=== PATIENT | female | born 1970 | race Caucasian/White ===

== ENCOUNTER 2021-10-02 22:30 | Inpatient (IN) | payer OTHER, SELFPAY ==
[~2021-10-02] VITALS: Ht 167.6 cm; Wt 97.5 kg
--- NOTE | 2021-10-02 22:30 | NUR ---
PT TAKEN TO BED 9
[2021-10-02 22:32] VITALS: BP 141/75
--- NOTE | 2021-10-02 22:32 | NUR ---
Teresa ni in [facility] - 10/02/21 at 2232 by MEDGJ PT W/C ASSISTED TO BED #9
[2021-10-02] MEDS ORDERED: NACL 0.9% 1,000 ML IV ONE (23:00)
[2021-10-02] MEDS ORDERED: PANTOPRAZOLE 40 MG INJ VIAL IVP ONE (23:00)
--- NOTE | 2021-10-02 23:02 | NUR ---
PATIENT VOMITED COFFEE GROUND EMESIS IN EMESIS BAG AND ALL OVER SELF. -- ERMD MADE AWARE-- ORDER 4MG ZOFRAN
[2021-10-02] MEDS ORDERED: ONDANSETRON 4 MG/2 ML VIAL ONE (23:05)
--- NOTE | 2021-10-02 23:16 | NUR ---
ERMD AT BEDSIDE FOR EXAMINATION OF PATIENT
[2021-10-02] MEDS ORDERED: ONDANSETRON 4 MG/2 ML VIAL IVP ONE (23:20)
--- NOTE | 2021-10-02 23:20 | NUR ---
IV removed, catheter intact and site benign. Applied folded 4x4 gauze and tape to stop bleeding. Patient pulled the IV out suddenly
[2021-10-02 23:24] LABS: BASOPHILS % (AUTO) 0.2 % (0.0-2.0); EOSINOPHILS % (AUTO) 0.4 % (0.0-4.0); HEMATOCRIT 30.8 % (36-48); HEMOGLOBIN 10.3 g/dL (12.0-16.0); LYMPHOCYTES # (AUTO) 1.6 K/uL (2.5-16.5); LYMPHOCYTES % (AUTO) 17.5 % (20.5-51.1); MEAN CORPUSCULAR HEMOGLOBIN 27 pg (27-31); MEAN CORPUSCULAR HGB CONC 33 g/dL (33-37); MONOCYTES # (AUTO) 0.6 K/uL (0.8-1.0); MONOCYTES % (AUTO) 6.8 % (1.7-9.3); NEUTROPHILS % (AUTO) 75.1 % (42.2-75.2); PLATELET COUNT (AUTO) 229 K/uL (140-450); RED BLOOD CELL COUNT(AUTO) 3.85 MIL/uL (4.20-5.40); RED CELL DISTRIBUTION WIDTH 17.4 % (11.6-13.7); WHITE BLOOD COUNT (AUTO) 9.4 K/uL (4.8-10.8)
[2021-10-02] MEDS ORDERED: cefTRIAXone 1,000 MG VIAL ONE (23:43)
[2021-10-02 23:45] LABS: ALBUMIN 3.3 g/dL (3.4-5.0); ANION GAP 11.2 (8-16); CARBON DIOXIDE 28.9 mmol/L (21-32); CREATININE 0.7 mg/dL (0.6-1.3); POTASSIUM 4.1 mmol/L (3.5-5.1); TOTAL BILIRUBIN 0.3 mg/dL (0.0-1.0)
[2021-10-02 23:52] LABS: PROTHROMBIN TIME 10.5 secs (10.8-13.4)
--- NOTE | 2021-10-03 00:30 | NUR ---
Patient appears to be resting comfortably in bed. Vital Signs within normal limits. Respirations even and unlabored. Safety measures are in place, attached to alarm security or surveillance monitor, and will continue to monitor patient.
[2021-10-03] MEDS ORDERED: NACL 0.9% 1,000 ML IV ONE (01:10)
--- NOTE | 2021-10-03 02:08 | NUR ---
unhooked patient on the moniotr and patient w/c assisted to the bathroom. patient tolerated well.
[2021-10-03] MEDS ORDERED: MORPHINE SULFATE 2 MG/ML SYR IVP PRN (03:25)
[2021-10-03] MEDS ORDERED: ONDANSETRON 4 MG/2 ML VIAL IVP PRN (03:25)
[2021-10-03] MEDS ORDERED: BISMUTH SUBSALICYLATE 15 ML UDBTL PO PRN (03:25)
[2021-10-03] MEDS: DEXT 5% / NACL 0.9% 1,000 ML IV SCH ×2 (04:06→11:15)
--- NOTE | 2021-10-03 04:16 | NUR ---
Patient will be admitted to care of [facility]. Admited to Telemetry. Will go to room 111B. Belongings list completed. Report to Zulay NAIK.
[2021-10-03 04:21] VITALS: BP 105/57
--- NOTE | 2021-10-03 04:21 | NUR ---
PT ARRIVED TO [facility] BY STEVE. PT IS AXOX4. PT IS ON RA. SHOWS NO SIGNS OF DISTRESS. PT ABLE TO SPEAK HER NEEDS IN DOMINICAN. DENIES PAIN. ON HYDRATION D5 @140ML/HR AND HAS A 18G ON LAC. SKIN INTACT. MRSA SWAB COMPLETED. EDUCATED THE PATIENT ON HOW TO USE THE CALL LIGHT. ADMISSION IN PROGRESS. CALL LIGHT WITHIN REACH.
--- NOTE | 2021-10-03 04:29 | NUR ---
patient tx to floor
--- NOTE | 2021-10-03 04:30 | NUR ---
VITAL SIGNS FOLLOW BP: 105/57, HR: 88, RR:16, O2:98, TEMP: 98.
[2021-10-03] MEDS ORDERED: FERR236T2 PO (04:40)
--- NOTE | 2021-10-03 07:27 | NUR ---
ENDORSED REPORT TO AM NURSE FOR CONTINUITY OF CARE. PT STABLE.
--- NOTE | 2021-10-03 07:54 | NUR ---
ALL REPORTS WERE GIVEN, TRANSFER OF CARE ENDORSED.
--- NOTE | 2021-10-03 07:55 | NUR ---
RECEIVED PT REPORT BEDSIDE, ALERT ORIENTED X4, SPEAKS ZAMBIAN. ON RA. BREATHING IS EVEN AND UNLABORED. NO S/S OF DISTRESS, IV IS PATENT AND INTACT. D5 NS AT 140 ML/HR. PT IS STABLE.
[2021-10-03 08:00] VITALS: BP 124/68
[2021-10-03] MEDS ORDERED: PANTOPRAZOLE 40 MG TABEC PO SCH (09:00)
[2021-10-03] MEDS ORDERED: ZOLPIDEM 5 MG TAB PO PRN (09:05)
[2021-10-03] MEDS ORDERED: guaiFENesin DM 200/20 MG-10 ML 10 ML UDC PO PRN (09:05)
[2021-10-03] MEDS ORDERED: DOCUSATE SODIUM 100 MG GELCAP PO PRN (09:05)
[2021-10-03] MEDS ORDERED: HYDROcodone/APAP 7.5/325 MG 1 TAB PO PRN (09:05)
[2021-10-03] MEDS ORDERED: ACETAMINOPHEN 325 MG TAB PO PRN (09:05)
[2021-10-03] MEDS ORDERED: ONDANSETRON 4 MG/2 ML VIAL IM/IVP PRN (09:05)
[2021-10-03] MEDS ORDERED: POTASSIUM CHLORIDE 10 MEQ TABER PO PRN (09:05)
--- NOTE | 2021-10-03 10:55 | NUR ---
PT SEEN BY DR HERNANDEZ TO EXPLAIN THE IMPORTANCE OF AN EGD AND A COLONOSCOPY. MD EXPLAINED THE EGD WILL BE TODAY AND THEN COLONOSCOPY PREP TONIGHT FOR COLONOSCOPY TOMORROW. PT UNDERSTOOD THE IMPORTANCE OF THE PROCEDURES ALONG WITH THE RISKS AND BENEFITS. ALL QUESTIONS WERE ANSWERED BY MD. PT AGREED WITH BOTH PROCEDURES AND SIGNED THE CONSENTS.
--- NOTE | 2021-10-03 11:28 | NUR ---
PATIENT HAS BEEN SCREENED AND CATEGORIZED HIGH NUTRITION RISK. PATIENT WILL BE SEEN WITHIN 1-2 DAYS OF ADMISSION. 10/03/21-10/04/21 REVIEWED BY LAKHWINDER DOWD RD
[2021-10-03 11:48] LABS: CHOL/HDL RATIO 5.2 (1-4.5); FREE T4 (FREE THYROXINE) 0.57 ng/dL (0.76-1.46); MAGNESIUM 1.9 mg/dL (1.8-2.4); PHOSPHORUS 2.5 mg/dL (2.5-4.9); THYROID STIMULATING HORMONE 1.55 uIU/mL (0.34-3.74)
[2021-10-03 12:00] VITALS: BP 126/69
--- NOTE | 2021-10-03 13:30 | NUR ---
PT IS IN BED RESTING. PT STATES SHE FEELS FINE BUT VERY HUNGRY. PT UNDERSTANDS THE REASONS FOR NPO. PT BREATHING IS EVEN AND UNLABORED. NO S/S OF DISTRESS. PT IS STABLE.
[2021-10-03] MEDS ORDERED: fentaNYL citrate 0.05 MG/ML VIAL ONE ×2 (14:24)
[2021-10-03] MEDS ORDERED: MIDAZOLAM 5 MG/5 ML VIAL ONE (14:25)
--- NOTE | 2021-10-03 14:30 | NUR ---
PT PICKED UP FOR EGD PROCEDURE. PT BREATHING IS EVEN AND UNLABORED. NO S/S OF DISTRESS. PT IS STABLE.
[2021-10-03] MEDS: MIDAZOLAM 2 MG/2 ML VIAL IVP ONE ×2 (15:28→16:00)
[2021-10-03] MEDS: fentaNYL citrate 0.05 MG/ML VIAL IVP ONE ×2 (15:29→16:00)
[2021-10-03 16:00] VITALS: BP 132/71
[2021-10-03] MEDS: POTASSIUM CHL 20MEQ/D5-NS 1,000 ML IV SCH (16:10)
--- NOTE | 2021-10-03 16:30 | NUR ---
PT RETURNED FROM EGD PROCEDURE. PT VS ARE WNL. PT BREATHING IS EVEN AND UNLABORED. NO S/S OF DISTRESS. PT IS STABLE.
[2021-10-03] MEDS: POLYETHYLENE GLYCOL 17 GM/PKT PO SCH ×2 (17:39→20:14)
[2021-10-03] MEDS: SENNA 8.6 MG TAB PO SCH (17:40)
[2021-10-03] MEDS: LACTULOSE 20 GM/30 ML UDC PO SCH ×2 (17:40→20:14)
--- NOTE | 2021-10-03 18:00 | NUR ---
PT POST OP V/S ARE WNL. PLACED IN CHART. PT IS STABLE.
[2021-10-03 18:20] LABS: BASOPHILS % (AUTO) 0.3 % (0.0-2.0); EOSINOPHILS # (AUTO) 0.1 K/uL (0-0.4); EOSINOPHILS % (AUTO) 0.8 % (0.0-4.0); HEMATOCRIT 23.4 % (36-48); HEMOGLOBIN 7.7 g/dL (12.0-16.0); LYMPHOCYTES # (AUTO) 2.2 K/uL (2.5-16.5); LYMPHOCYTES % (AUTO) 26.7 % (20.5-51.1); MEAN CORPUSCULAR HEMOGLOBIN 26 pg (27-31); MEAN CORPUSCULAR HGB CONC 33 g/dL (33-37); MEAN CORPUSCULAR VOLUME 80.7 fL (80-94); MONOCYTES # (AUTO) 0.7 K/uL (0.8-1.0); NEUTROPHILS # (AUTO) 5.4 K/uL (1.8-7.7); NEUTROPHILS % (AUTO) 64.2 % (42.2-75.2); PLATELET COUNT (AUTO) 183 K/uL (140-450); RED BLOOD CELL COUNT(AUTO) 2.91 MIL/uL (4.20-5.40); RED CELL DISTRIBUTION WIDTH 17.6 % (11.6-13.7); WHITE BLOOD COUNT (AUTO) 8.4 K/uL (4.8-10.8)
[2021-10-03 18:29] LABS: ANION GAP 10.3 (8-16); CARBON DIOXIDE 28.6 mmol/L (21-32); CREATININE 0.6 mg/dL (0.6-1.3); POTASSIUM 3.9 mmol/L (3.5-5.1)
--- NOTE | 2021-10-03 19:10 | NUR ---
PT ENDORSED TO LANDSCAPE LABORER FOR CONTINUITY OF CARE.
--- NOTE | 2021-10-03 19:15 | NUR ---
RECEIVED BEDSIDE REPORT FROM DAY RN. PT IS AAOX4. ROMANIAN SPEAKING AMBULATORY W/ ASSIST D/T DIZZINESS. RESPIRATIONS ARE EQUAL AND UNLABORED ON ROOM AIR. LUNG SOUNDS CLEAR. SKIN IS WARM, DRY AND INTACT. IV ON LAC 20G INFUSING IVF PER ORDER. PT HAD EGD TODAY IS YURIY FOR COLONOSCOPY TOMORROW. PT IS NPO AFTER MIDNIGHT. CONSENT IN CHART. PER PT LBM NOTED W/ CONT BLOODY STOOL. POC DISCUSSED W/ PT. PT VERBALIZED UNDERSTANDING. CALL LIGHT IS WITHIN REACH. WILL CONTINUE TO MONITOR.
[2021-10-03 20:00] VITALS: BP 113/64
--- NOTE | 2021-10-03 20:14 | NUR ---
VITAL SIGNS ARE WITHIN NORMAL LIMITS. ADMIN YURIY MEDICATION PER ORDERS. PT TOLERATED WELL. MED EDUCATION GIVEN. PT VERBALIZED UNDERSTANDING. ALL SAFETY MEASURES ARE IN PLACE. WILL CONTINUE TO MONITOR.
[2021-10-03] MEDS: PANTOPRAZOLE 40 MG INJ VIAL IVP SCH (22:08)
--- NOTE | 2021-10-03 22:16 | NUR ---
PATIENT OBSERVED LAYING IN BED APPEARS TO BE ASLEEP. CHEST RISE AND FALL NOTED. ALL SAFETY MEASURES ARE IN PLACE. WILL CONTINUE TO MONITOR
[2021-10-04] VITALS: BP 111/65
--- NOTE | 2021-10-04 | NUR ---
VITAL SIGNS ARE WITHIN NORMAL LIMITS. ALL SAFETY MEASURES ARE IN PLACE. WILL CONTINUE TO MONITOR.
--- NOTE | 2021-10-04 02:04 | NUR ---
ROUNDS MADE. PT OBSERVED RESTING IN BED APPEARS TO BE ASLEEP. CHEST RISE AND FALL NOTED. WILL CONTINUE TO MONITOR.
[2021-10-04] MEDS: POTASSIUM CHL 20MEQ/D5-NS 1,000 ML IV SCH ×2 (03:19→12:20)
[2021-10-04 04:00] VITALS: BP 105/67
--- NOTE | 2021-10-04 04:00 | NUR ---
VITAL SIGNS ARE WITHIN NORMAL LIMITS. ALL SAFETY MEASURES ARE IN PLACE. WILL CONTINUE TO MONITOR.
[2021-10-04] MEDS ORDERED: MAGNESIUM CITRATE 300 ML BTL PO SCH (06:00)
[2021-10-04] MEDS: PANTOPRAZOLE 40 MG INJ VIAL IVP SCH ×3 (06:12→22:26)
[2021-10-04 07:02] LABS: ANION GAP 8.9 (8-16); CARBON DIOXIDE 28.3 mmol/L (21-32); CREATININE 0.7 mg/dL (0.6-1.3); POTASSIUM 4.2 mmol/L (3.5-5.1)
[2021-10-04 07:20] LABS: BASOPHILS % (AUTO) 0.2 % (0.0-2.0); EOSINOPHILS # (AUTO) 0.1 K/uL (0-0.4); EOSINOPHILS % (AUTO) 1.2 % (0.0-4.0); HEMATOCRIT 22.1 % (36-48); HEMOGLOBIN 7.4 g/dL (12.0-16.0); LYMPHOCYTES # (AUTO) 1.6 K/uL (2.5-16.5); LYMPHOCYTES % (AUTO) 32.4 % (20.5-51.1); MEAN CORPUSCULAR HEMOGLOBIN 27 pg (27-31); MEAN CORPUSCULAR HGB CONC 33 g/dL (33-37); MEAN CORPUSCULAR VOLUME 80.3 fL (80-94); MONOCYTES # (AUTO) 0.3 K/uL (0.8-1.0); MONOCYTES % (AUTO) 5.2 % (1.7-9.3); PLATELET COUNT (AUTO) 159 K/uL (140-450); RED BLOOD CELL COUNT(AUTO) 2.75 MIL/uL (4.20-5.40); RED CELL DISTRIBUTION WIDTH 17.5 % (11.6-13.7); WHITE BLOOD COUNT (AUTO) 4.9 K/uL (4.8-10.8)
--- NOTE | 2021-10-04 07:39 | NUR ---
GAVE BEDSIDE REPORT TO DAY RN. PT ENDORSED IN STABLE CONDITION.
--- NOTE | 2021-10-04 07:40 | NUR ---
RECEIVED BEDSIDE REPORT FROM CALCINE FURNACE TENDER NURSE FOR CONTINUITY OF CARE. PT IS AAOX4. UZBEK SPEAKING AMBULATORY W/ ASSIST D/T DIZZINESS. RESPIRATIONS ARE EQUAL AND UNLABORED ON ROOM AIR. NO DISTRESS NOTED. SKIN IS WARM, DRY AND INTACT. IV ON LAC 20G INFUSING IVF WELL. S/P EGD AND PATIENT HAS SCHEDULED COLONOSCOPY TODAY. CONSENT IN CHART. POC DISCUSSED W/ PT. PT VERBALIZED UNDERSTANDING. CALL LIGHT IS WITHIN REACH. WILL CONTINUE TO MONITOR.
[2021-10-04 08:00] VITALS: BP 104/57
[2021-10-04] MEDS: POLYETHYLENE GLYCOL 17 GM/PKT PO SCH ×2 (08:50→12:26)
[2021-10-04] MEDS: LACTULOSE 20 GM/30 ML UDC PO SCH ×2 (08:50→12:26)
[2021-10-04] MEDS: SENNA 8.6 MG TAB PO SCH ×2 (08:50→12:22)
--- NOTE | 2021-10-04 08:57 | NUR ---
ALL SCHEDULED MEDS GIVEN. PT IS STABLE. DENIES PAIN. WILL CONTINUE TO MONITOR.
--- NOTE | 2021-10-04 11:23 | NUR ---
CHECKED ON PATIENT. PATIENT IS STABLE. NO DISTRESS NOTED. WILL CONTINUE TO MONITOR.
--- NOTE | 2021-10-04 11:35 | NUR ---
10/04/21 RD INITIAL ASSESSMENT COMPLETED PLEASE REFER TO NUTRITION ASSESSMENT UNDER CARE ACTIVITY FOR ESTIMATED NUTRITIONAL NEEDS. 1. WHEN/IF MEDICALLY APPROPRIATE, ADVANCE TO BLAND DIET 2. RD TO FOLLOW-UP 3-5 DAYS, MODERATE RISK
[2021-10-04 12:00] VITALS: BP 110/78
--- NOTE | 2021-10-04 13:40 | NUR ---
OR NURSES AT BEDSIDE PREPARING TO TRANSFER PATIENT TO OR.
[2021-10-04] MEDS ORDERED: MIDAZOLAM 5 MG/5 ML VIAL ONE (14:09)
[2021-10-04] MEDS ORDERED: fentaNYL citrate 0.05 MG/ML VIAL ONE (14:09)
[2021-10-04] MEDS ORDERED: diphenhydrAMINE 50 MG/ML VIAL ONE (14:09)
--- NOTE | 2021-10-04 15:35 | NUR ---
PATIENT BROUGHT BACK FROM COLONOSCOPY. PATIENT IS STABLE AT THE MOMENT. WILL ASSESS VS.
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
[2021-10-04 16:00] VITALS: BP 108/62
[2021-10-04] MEDS: FERROUS SULFATE 325 MG TABEC PO SCH (17:49)
[2021-10-04 17:56] LABS: HEMATOCRIT 21.1 % (36-48)
--- NOTE | 2021-10-04 18:02 | NUR ---
ALL SCHEDULED MEDS GIVEN. PT IS STABLE. NO DISTRESS NOTED. WILL CONTINUE TO MONITOR.
[2021-10-04] MEDS ORDERED: MIDAZOLAM 2 MG/2 ML VIAL IVP ONE (18:20)
[2021-10-04] MEDS ORDERED: fentaNYL citrate 0.05 MG/ML VIAL IVP ONE (18:20)
[2021-10-04 19:08] LABS: APPEARANCE,URINE CLEAR (CLEAR); BILIRUBIN,URINE NEGATIVE (NEGATIVE); BLOOD, URINE NEGATIVE (NEGATIVE); LEUKOCYTE ESTERASE ,URINE 1+ (NEGATIVE); NITRITE, URINE NEGATIVE (NEGATIVE); PH,URINE 5.5 (5.0-9.0); UGLUCOSE NEGATIVE (NEGATIVE)
[2021-10-04 19:19] LABS: COLOR,URINE YELLOW (YELLOW)
--- NOTE | 2021-10-04 19:26 | NUR ---
ENDORSED TO COMPOUND SPECIALIST NURSE FOR CONTINUITY OF CARE. PT IS STABLE.
--- NOTE | 2021-10-04 19:27 | NUR ---
RECEIVED REPORT FROM MORNING SHIFT FOR CONTINUITY OF CARE. PATIENT IS STABLE IN BED. A&OX4 LAO SPEAKING ONLY. DENIES PAIN AT THIS TIME. NO APPARENT S/SX OF ACUTE DISTRESS. PATIENT IS ON ROOM AIR. LEFT AC 20G PATENT/INTACT WITH KCL 20 MEQ INFUSING AT 10 ML. SKIN IS INTACT. PLAN OF CARE AND WHITE COMMUNICATION BOARD UPDATED. BED IN LOW/LOCKED POSITION. CALL LIGHT WITHIN REACH. ENCOURAGED PATIENT TO CALL FOR ANY NEEDS/ASSISTANCE. WILL CONTINUE TO MONITOR.
[2021-10-04 19:39] LABS: RBC,URINE NONE SEEN /HPF (0-5); WBC,URINE 0-5 /HPF (0-5)
--- NOTE | 2021-10-04 19:45 | NUR ---
EXPLAINED TO PATIENT THAT HER HGB OF 1800 WAS 7.0. PATIENT GAVE CONSENT FOR BLOOD TRANSFUSION. WILL COORDINATE WITH CLIPPING MARKER MD. PATIENT ALSO C/O HEADACHE. WILL ADMINISTER PRN PER MD ORDER.
[2021-10-04 19:56] LABS: BARBITURATE, URINE NEGATIVE ng/ml (NEG <=200); BENZODIAZEPINE, URINE NEGATIVE ng/mL (NEG <=200); CANNABINOID, URINE NEGATIVE ng/mL (NEG <=50); COCAINE, URINE NEGATIVE ng/mL (NEG <=300); OPIATE, URINE NEGATIVE ng/mL (NEG <=2000); PHENCYCLIDINE SCREEN,URINE NEGATIVE ng/mL (NEG <=25)
[2021-10-04 20:00] VITALS: BP 125/76
--- NOTE | 2021-10-04 20:00 | NUR ---
Patient's Plan of Care was discussed and reviewed with INTERNAL SALES ENGINEER: LISE ORTEGA
--- NOTE | 2021-10-04 20:30 | NUR ---
OBTAINED SIGNATURE FROM PATIENT. WILL COORDINATE WITH DR. GARCIA FOR HIS SIGNATURE.
--- NOTE | 2021-10-04 22:50 | NUR ---
LAB NOTIFIED THAT PRBC IS READY FOR PICKUP.
--- NOTE | 2021-10-04 23:00 | NUR ---
INITIAL VS TAKEN BEFORE PRBC PICKUP. VS WNL. INFORMED PATIENT THAT TRANSFUSION WILL BEGIN SHORTLY. PATIENT DENIES PAIN AT THIS TIME. RESPIRATIONS EVEN AND UNLABORED. NO APPARENT S/SX OF ACUTE DISTRESS. WHITE COMMUNICATION BOARD UPDATED. ALL SAFETY MEASURES IN PLACE. CALL LIGHT WITHIN REACH. WILL CONTINUE TO MONITOR.
--- NOTE | 2021-10-04 23:15 | NUR ---
RETURNED TO [facility] UNIT WITH PR[facility]. HEENA LOPEZ WILL BE SECOND NURSE NAVIGATOR AND WILL ASSIST WITH SETTING UP THE IV.
--- NOTE | 2021-10-04 23:33 | NUR ---
INITIAL TIME STARTED FOR PRBC TRANSFUSION. EDUCATED PATIENT TO LET NURSE KNOW FOR ANY S/SX OF ADVERSE REACTION SUCH ITCHING, REDNESS, FEVER, OR PAIN. PATIENT VERBALIZED UNDERSTANDING. WILL RETURN IN 15 MINUTES.
--- NOTE | 2021-10-04 23:48 | NUR ---
VS TAKEN: T: 98 DEGREES FAHRENHEIT BP: 109/49 HR: 80 O2: 97%RA RR: 16 PAIN: 0/10. NO ADVERSE REACTION NOTED AT THIS TIME. PATIENT IS TOLERATING THE TRANSFUSION WELL. PATIENT DENIES PAIN AT THIS TIME AND VERBALIZES SHE FEELS GOOD. ADVISED PATIENT THAT NURSE WILL RETURN IN 30 MINUTES. REMINDED PATIENT TO HIT CALL LIGHT FOR ANY S/SX OF ADVERSE REACTION SUCH ITCHINESS, REDNESS, FEVER, OR PAIN. WHITE COMMUNICATION BOARD UPDATED. ALL SAFETY MEASURES IN PLACE. CALL LIGHT WITHIN. WILL CONTINUE TO MONITOR.
--- NOTE | 2021-10-05 00:28 | NUR ---
VS TAKEN TEMP: 97.7 DEGREES FAHRENHEIT PULSE: 84BPM RR: 18 BP: 122/84 PAIN: 0/10. NO ADVERSE REACTION NOTED. PATIENT IS ON THE PHONE WITH A FRIEND AND APPEARS PLEASANT. PATIENT DENIES PAIN AT THIS TIME. RESPIRATIONS EVEN AND UNLABORED. NO APPARENT S/SX OF ACUTE DISTRESS.
--- NOTE | 2021-10-05 01:28 | NUR ---
VS TAKEN TEMP: 97.2 DEGREES FAHRENHEIT PULSE: 77BPM RR: 16 BP: 102/68 PAIN: 0/10. NO ADVERSE REACTION NOTED. PATIENT IS STABLE AND RESTING. PATIENT DENIES PAIN AT THIS TIME. RESPIRATIONS EVEN AND UNLABORED. NO APPARENT S/SX OF ACUTE DISTRESS. REMINDED PATIENT TO HIT CALL LIGHT IF ANY S/SX OF ADVERSE REACTION NOTED SUCH ITCHING, SOB, SWELLING, OR FEVER. WHITE COMMUNICATION BOARD UPDATED. ALL SAFETY MEASURES IN PLACE. CALL LIGHT WITHIN REACH. WILL CONTINUE TO MONITOR.
--- NOTE | 2021-10-05 02:28 | NUR ---
VS TAKEN TEMP: 97.6 DEGREES FAHRENHEIT PULSE: 70BPM RR: 16 BP: 109/69 PAIN: 0/10. NO ADVERSE REACTION NOTED. PATIENT IS STABLE AND RESTING. PATIENT DENIES PAIN AT THIS TIME. RESPIRATIONS EVEN AND UNLABORED. NO APPARENT S/SX OF ACUTE DISTRESS. REMINDED PATIENT TO HIT CALL LIGHT IF ANY S/SX OF ADVERSE REACTION NOTED SUCH ITCHING, SOB, SWELLING, OR FEVER. WHITE COMMUNICATION BOARD UPDATED. ALL SAFETY MEASURES IN PLACE. CALL LIGHT WITHIN REACH. WILL CONTINUE TO MONITOR.
--- NOTE | 2021-10-05 03:05 | NUR ---
BLOOD TRANSFUSION ENDED. WILL GATHER HAZARD BAG TO DISPOSE EQUIPMENT AND CHECK VS IN 15 NOTES. PATIENT DENIES PAIN AT THIS TIME. RESPIRATIONS EVEN AND UNLABORED. NO APPARENT S/SX OF ACUTE DISTRESS.
--- NOTE | 2021-10-05 03:20 | NUR ---
S/P PRBC VS TAKEN TEMP: 97.6 DEGREES FAHRENHEIT PULSE: 70BPM RR: 16 BP: 110/67 PAIN: 0/10. NO ADVERSE REACTION NOTED. PATIENT IS STABLE AND RESTING. PATIENT DENIES PAIN AT THIS TIME. RESPIRATIONS EVEN AND UNLABORED. NO APPARENT S/SX OF ACUTE DISTRESS. REMINDED PATIENT TO HIT CALL LIGHT IF ANY S/SX OF ADVERSE REACTION NOTED SUCH ITCHING, SOB, SWELLING, OR FEVER. WHITE COMMUNICATION BOARD UPDATED. ALL SAFETY MEASURES IN PLACE. CALL LIGHT WITHIN REACH. WILL CONTINUE TO MONITOR.
[2021-10-05 04:00] VITALS: BP 110/67
--- NOTE | 2021-10-05 05:20 | NUR ---
CHECKED PATIENT. STABLE AND ASLEEP IN LEFT SIDE-LYING POSITION. HOB ELEVATED AT 30 DEGREES. CHEST RISING AND FALLING. RESPIRATIONS EVEN AND UNLABORED. NO APPARENT S/SX OF ACUTE DISTRESS. WHITE COMMUNICATION BOARD UPDATED. ALL SAFETY MEASURES IN PLACE. CALL LIGHT WITHIN REACH. WILL CONTINUE TO MONITOR.
[2021-10-05] MEDS: PANTOPRAZOLE 40 MG INJ VIAL IVP SCH (06:33)
[2021-10-05 06:38] LABS: BASOPHILS % (AUTO) 0.3 % (0.0-2.0); EOSINOPHILS # (AUTO) 0.1 K/uL (0-0.4); EOSINOPHILS % (AUTO) 1.3 % (0.0-4.0); HEMOGLOBIN 7.7 g/dL (12.0-16.0); LYMPHOCYTES # (AUTO) 1.3 K/uL (2.5-16.5); LYMPHOCYTES % (AUTO) 28.9 % (20.5-51.1); MEAN CORPUSCULAR HEMOGLOBIN 28 pg (27-31); MEAN CORPUSCULAR HGB CONC 33 g/dL (33-37); MEAN CORPUSCULAR VOLUME 82.8 fL (80-94); MONOCYTES # (AUTO) 0.3 K/uL (0.8-1.0); MONOCYTES % (AUTO) 7.5 % (1.7-9.3); NEUTROPHILS # (AUTO) 2.7 K/uL (1.8-7.7); PLATELET COUNT (AUTO) 140 K/uL (140-450); RED BLOOD CELL COUNT(AUTO) 2.78 MIL/uL (4.20-5.40); RED CELL DISTRIBUTION WIDTH 18.6 % (11.6-13.7); WHITE BLOOD COUNT (AUTO) 4.3 K/uL (4.8-10.8)
[2021-10-05 07:00] LABS: ANION GAP 11.1 (8-16); CARBON DIOXIDE 26.5 mmol/L (21-32); CREATININE 0.7 mg/dL (0.6-1.3); POTASSIUM 3.6 mmol/L (3.5-5.1)
--- NOTE | 2021-10-05 07:05 | NUR ---
ENDORSED PATIENT TO MORNING SHIFT NURSE FOR CONTINUITY CARE. PATIENT IS STABLE.
--- NOTE | 2021-10-05 07:30 | NUR ---
PATIENT RESTING IN BED, EYES CLOSED BREATHING SYMMETRICAL AND UNLABORED. BELONGINGS WITHIN REACH BED IN LOW POSITION , ALL SAFETY MEASURES ARE IN PLACE. CALL LIGHT WITHIN REACH.
[2021-10-05] MEDS: FERROUS SULFATE 325 MG TABEC PO SCH (08:37)
--- NOTE | 2021-10-05 08:37 | NUR ---
PATIENT RESTING IN BED IN SITTING POSITION . PT ABLE TO MAKE NEEDS KNOWN , TOLERATING FOOD WELL DENIES NAUSEA AND VOMMITING . PT STATES SHE HAD MB BROWN NO TAR, BLACK , OR HURST PER REPORT. PT STATES SHE FEEL MUCH BETTER AT THIS TIME . BOWEL SOUNDS PRESENT NO TENDERNESS. ALL SAFETY MEASURES IN PLACE
--- NOTE | 2021-10-05 08:40 | NUR ---
BM BROWN FORMED., AND NOT PAINFUL
[2021-10-05 09:37] LABS: T4 (THYROXINE) 7.9 ug/dL (4.5 - 12.0)
[2021-10-05] MEDS: POTASSIUM CHL 20MEQ/D5-NS 1,000 ML IV SCH (10:50)
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
[2021-10-05] MEDS ORDERED: FER325 PO (11:43)
[2021-10-05] MEDS ORDERED: PANT40EC PO (11:43)
[2021-10-05 12:24] LABS: HEMATOCRIT 22.5 % (36-48); HEMOGLOBIN 7.6 g/dL (12.0-16.0)
--- NOTE | 2021-10-05 12:24 | NUR ---
PATIENT DISCHARGE INSTRUCTIONS COMPLETE. PT EDUCATED AND VERBALIZED UNDERSTANDING ON CONTINUITY OF CARE. PT EDUCATED TO FOLLOW UP WITH PCP. PATIENT DENIED ANY FURTHER QUESTIONS.
== END 2021-10-05 14:30 | disposition home or self-care (01) | DRG 378 ==
LOC: MED 22:30 → MTU 10-03 03:32
PROVIDERS: ADMIT Family Medicine; ATTEND Family Medicine
PROC: 0W3P8ZZ Control Bleeding in Gastrointestinal Tract, Via Natural or Artificial Opening Endoscopic (ICD-10-PCS; 2021-10-03)
PROC: 0DB68ZX Excision of Stomach, Via Natural or Artificial Opening Endoscopic, Diagnostic (ICD-10-PCS; 2021-10-03 11:35)
PROC: 0DJD8ZZ Inspection of Lower Intestinal Tract, Via Natural or Artificial Opening Endoscopic (ICD-10-PCS; 2021-10-04)
PROC: 30233N1 Transfusion of Nonautologous Red Blood Cells into Peripheral Vein, Percutaneous Approach (ICD-10-PCS; principal; 2021-10-04 16:55)
DX: K26.4 Chronic or unspecified duodenal ulcer with hemorrhage (principal); E44.1 Mild protein-calorie malnutrition; Q43.8 Other specified congenital malformations of intestine; D63.8 Anemia in other chronic diseases classified elsewhere; K29.70 Gastritis, unspecified, without bleeding; E66.9 Obesity, unspecified; I10 Essential (primary) hypertension; Z20.822 Contact with and (suspected) exposure to COVID-19; R73.9 Hyperglycemia, unspecified; Z79.899 Other long term (current) drug therapy; Z68.34 Body mass index [BMI] 34.0-34.9, adult
CPT/HCPCS: 36415; 71045; 80048; 80053; 80305; 81001; 82150; 83036; 83690; 83735; 83880; 84100; 84436; 84439; 84443; 84479; 84484; 85018; 85025; 85610; 85730; 86677; 86886; 86900; 86901; 86920; 87086; 93005; 96361; 96365; 96375; 99291; C9113; J0696; J1200; J2250; J2405; J3010; J7030; P9016; Q0092; Q9967